=== PATIENT | female | born 1975 | race Caucasian/White ===

== ENCOUNTER 2018-02-17 22:02 | Emergency (ER) | payer BC ==
[2018-02-17 22:09] VITALS: TEMP 98.7
[2018-02-17] MEDS ORDERED: ALBUTEROL NEBULIZED 2.5 MG/3 ML INHALATION STA (22:28)
[2018-02-17] MEDS ORDERED: predniSONE 20 MG TAB PO STA (22:28)
--- NOTE | 2018-02-17 22:32 | ED ---
URI HPI - General Chief Complaint: Upper Respiratory Infection Stated Complaint: SOB Time Seen by Provider: 02/17/18 22:19 Source: patient Mode of arrival: ambulatory Limitations: no limitations - History of Present Illness Initial Comments: This patient is a 43-year-old woman who presents to be evaluated for constellation of respiratory symptoms, that includes nasal congestion, chest congestion, wheezing, and cough. She does have some pains in the bilateral ribs when she coughs but otherwise no chest pain. She states the symptoms have been coming on over a couple of days, since she had gone camping trip. MD Complaint: cough, nasal congestion Onset/Timin -: days(s) Consistency: constant Improves With: nothing Worsens With: other - Related Data Previous Rx's Medication Instructions Recorded Albuterol Inhaler [Ventolin Hfa 1 - 2 puff INHALATION Q6HR PRN #1 02/18/18 Inhaler] inhaler Azithromycin [Zithromax Z-pack] 250 mg PO DIRECTED #6 tab 02/18/18 predniSONE 60 mg PO DAILY #30 tab 02/18/18 Allergies Allergy/AdvReac Type Severity Reaction Status Date / Time adhesive Allergy Rash/Hives Verified 02/17/18 22:10 codeine Allergy Nausea & Verified 02/17/18 22:10 Vomiting Sulfa (Sulfonamide Allergy Swelling Verified 02/17/18 22:10 Antibiotics) antibiotic ointments Allergy Rash/Hives Uncoded 02/17/18 22:10 Review of Systems ROS Statement: Those systems with pertinent positive or pertinent negative responses have been documented in the HPI. ROS Other: All systems not noted in ROS Statement are negative. Constitutional: Denies: fever, chills Respiratory: Reports: as per HPI, cough, dyspnea, wheezes. Denies: hemoptysis Cardiovascular: Reports: as per HPI, chest pain. Denies: palpitations, dyspnea on exertion, orthopnea, edema Gastrointestinal: Denies: abdominal pain, vomiting, diarrhea Genitourinary: Denies: dysuria Musculoskeletal: Denies: back pain Skin: Denies: rash Neurological: Denies: headache, weakness, numbness Past Medical History Additional Past Medical History / Comment(s): spinal injury. pain pump. spinal cord stimulator. History of Any Multi-Drug Resistant Organisms: C-DIFF Date of last positivie culture/infection: 2004 MDRO Source:: stool Past Surgical History: Back Surgery Additional Past Surgical History / Comment(s): left partial nephrectomy. left elbow. nasal polyps. Past Psychological History: No Psychological Hx Reported Smoking Status: Never smoker Past Alcohol Use History: None Reported Past Drug Use History: None Reported General Exam Limitations: no limitations General appearance: alert, in no apparent distress Head exam: Present: atraumatic, normocephalic Eye exam: Present: normal appearance. Absent: scleral icterus, conjunctival injection ENT exam: Present: normal oropharynx, mucous membranes moist, TM's normal bilaterally, normal external ear exam Respiratory exam: Present: wheezes. Absent: respiratory distress, rales, rhonchi, stridor, chest wall tenderness, accessory muscle use, decreased breath sounds Cardiovascular Exam: Present: regular rate, normal rhythm, normal heart sounds. Absent: systolic murmur, diastolic murmur, rubs, gallop GI/Abdominal exam: Present: soft. Absent: distended, tenderness, guarding, rebound, mass Extremities exam: Present: normal inspection, normal capillary refill. Absent: pedal edema, calf tenderness Back exam: Present: normal inspection. Absent: CVA tenderness (R), CVA tenderness (L) Skin exam: Present: warm, dry, intact, normal color. Absent: rash Course Vital Signs 02/17/18 02/17/18 02/17/18 22:05 22:30 22:53 Temperature 98.7 F Pulse Rate 105 H 100 Respiratory 20 20 Rate Blood Pressure 152/94 O2 Sat by Pulse 96 Oximetry 02/17/18 02/18/18 02/18/18 23:00 00:14 00:22 Temperature Pulse Rate 88 88 92 Respiratory Rate Blood Pressure O2 Sat by Pulse Oximetry 02/18/18 02/18/18 00:28 00:35 Temperature Pulse Rate 102 H Respiratory 20 16 Rate Blood Pressure 141/83 O2 Sat by Pulse 97 95 Oximetry Disposition Clinical Impression: Pneumonia Disposition: HOME SELF-CARE Condition: Fair Instructions: Pneumonia (ED) Prescriptions: Albuterol Inhaler [Ventolin Hfa Inhaler] 1 - 2 puff INHALATION Q6HR PRN #1 inhaler PRN Reason: Wheezing Azithromycin [Zithromax Z-pack] 250 mg PO DIRECTED #6 tab predniSONE 60 mg PO DAILY #30 tab Is patient prescribed a controlled substance at d/c from ED?: No Referrals: Nonstaff,Physician [REFERRING] - 1-2 days
[2018-02-18] MEDS ORDERED: ALBUTEROL NEBULIZED 2.5 MG/3 ML INHALATION STA (00:02)
[2018-02-18 00:37] VITALS: BP 141/83; PULSE 102; RESP 16
[2018-02-18] MEDS ORDERED: AZITHROMYCIN 500 MG TAB PO STA (00:39)
[2018-02-18] MEDS ORDERED: cefTRIAXone 250 MG VIAL IM STA (00:39)
--- NOTE | 2018-02-18 00:43 | XR ---
EXAMINATION TYPE: XR chest 2V DATE OF EXAM: 02/17/2018 COMPARISON: NONE HISTORY: Cough and congestion TECHNIQUE: Frontal and lateral views of the chest are obtained. FINDINGS: Heart and mediastinum are normal. There is central coarsening of interstitial markings. Th ere is no pleural effusion. There are neurostimulator is in the lower thoracic spine. Bony thorax is intact. IMPRESSION: Perihilar pulmonary interstitial infiltrates. No pulmonary consolidation. There is proba bar prominent fibrosis.
== END 2018-02-18 01:17 | disposition home or self-care (01) ==
LOC: EC 22:02
DX: J18.9 Pneumonia, unspecified organism (principal); Z91.048 Other nonmedicinal substance allergy status; Z88.5 Allergy status to narcotic agent; Z88.2 Allergy status to sulfonamides; Z88.1 Allergy status to other antibiotic agents
CPT/HCPCS: 94640 ×2; 71046; 99283; 96372; J0696; J7512